=== PATIENT | male | born 1965 | race Caucasian/White ===

== ENCOUNTER 2021-10-15 08:10 | Outpatient (REF) | payer OTHER, SELFPAY ==
--- NOTE | ~2021-10-15 | XR_ITS ---
EXAMINATION: XR ELBOW, RIGHT XR ELBOW, LEFT CLINICAL INFORMATION: Pain. COMPARISON: None TECHNIQUE: 3 views of each elbow. FINDINGS: LEFT ELBOW: There is no evidence of acute fracture or dislocation of the left elbow. Joint spaces appear maintained. No effusion is evident. No destructive bony lesions. RIGHT ELBOW: There is no evidence of acute fracture or dislocation of the right elbow. No effusion is appreciated. There is some mild spurring about the olecranon. XR/XR elbow RT min 3V IMPRESSION: No evidence of acute fracture or effusion of either the right or left elbow.
--- NOTE | ~2021-10-15 | XR_ITS ---
EXAMINATION: XR ELBOW, RIGHT XR ELBOW, LEFT CLINICAL INFORMATION: Pain. COMPARISON: None TECHNIQUE: 3 views of each elbow. FINDINGS: LEFT ELBOW: There is no evidence of acute fracture or dislocation of the left elbow. Joint spaces appear maintained. No effusion is evident. No destructive bony lesions. RIGHT ELBOW: There is no evidence of acute fracture or dislocation of the right elbow. No effusion is appreciated. There is some mild spurring about the olecranon. XR/XR elbow LT min 3V IMPRESSION: No evidence of acute fracture or effusion of either the right or left elbow.
== END 2021-10-15 08:11 | disposition home or self-care (01) ==
LOC: HO.HOSX 08:10
PROVIDERS: Visit Provider Physician Assistant
DX: M77.02 Medial epicondylitis, left elbow (principal); M77.11 Lateral epicondylitis, right elbow
CPT/HCPCS: 20551; 73080; J1020